=== PATIENT | female | born 1970 | race Caucasian/White ===

== ENCOUNTER → 2023-05-03 | Emergency (ER) | payer OTHER ==
[~2023-05-03] VITALS: Ht 170.2 cm; Wt 102.1 kg
== END | disposition designated cancer center or children's hospital (05) ==
LOC: ER 11:39
DX: N20.1 Calculus of ureter (principal); R10.814 Left lower quadrant abdominal tenderness; R10.9 Unspecified abdominal pain; I10 Essential (primary) hypertension